=== PATIENT | male | born 1995 | race Caucasian/White ===

== ENCOUNTER 2017-07-10 01:10 | Inpatient (IN) ==
[2017-07-10] MEDS ORDERED: ONDANSETRON 4 MG/2 ML INJECTION IVP ONE ×2 (01:24→02:25)
[2017-07-10] MEDS ORDERED: NS 1,000 ML IV ONE (01:24)
--- NOTE | 2017-07-10 01:29 | Emergency Department Report ---
Overdose HPI - General Stated Complaint: ETOH Time Seen by Provider: 07/10/17 01:24 Source: patient, family Mode of arrival: ambulatory Limitations: no limitations - History of Present Illness HPI Narrative: 22yo man presented to the ER by his friend for dyspnea. Pts 36yo GF recently broke up with him and went back to her ex. Pt was distraught, so he started doing shots at a local bar. Pt had been texting the friend who brought him most of the evening; just before presentation, he texted the friend to come get him. As the friend was helping the pt out of the bar, pt began to c/o dyspnea. They got into the car and pt said, "Call 911". Then he passed out. Pts friend was able to feel a pulse, so he drove the friend to the ER instead. MD complaint: accidental overdose Onset (ago): minute(s) Intent: wanted to escape How Overdose Was Discovered: called family/friend Treatments Prior to Arrival: none - Related Data Home Medications Medication Instructions Recorded Confirmed Ibuprofen 2 cap PO Q4H PRN #0 10/11/16 NO ROUTINE MEDS #0 10/11/16 Allergies Allergy/AdvReac Type Severity Reaction Status Date / Time No Known Allergies Allergy Unverified 10/11/16 18:11 Review of Systems Limitations: ROS unobtainable due to patient's medical condition [facility] Medical History Updates: Facial laceration Physical Exam - Limitations Limitations: other - General General appearance: in no apparent distress, appears intoxicated, lethargic - Normal Exams: Head:: Normocephalic without trauma Eyes:: Pupils are PERRLA w/ EOMI, No scleral icterus, irritation, or foreign bodies noted ENMT:: No facial trauma, nasal exudates, pharyngeal erythema, or exudates are noted Neck:: Full range of motion, without adenopathy Chest/Respirations:: Clear all walker, with good airflow, and symmetry bilaterally Cardiovascular:: Regular rate and rhythm, without murmur or gallop, Pulses 2+ all extremities, capillary refill, <2 seconds all extremities Abdomen:: Bowel sounds positive, soft, non-tender, non-distended, no hepatosplenomegaly, masses or bruits noted Lymphatic:: No lymphadenopathy Musculoskeletal:: No tenderness, or deformity noted Integumentary:: No rashes, hives, or bruising noted - Neurological Exam Neurological exam: Present: reflexes normal. Absent: alert - Expanded Neurological Exam Patient oriented to: Present: person, place. Absent: time - Psychiatric Psychiatric exam: Present: anxious Course Course Narrative: While obtaining initial labs rads, pt would intermittently posture and stop responding. During these episodes, pts SaO2 would drop into the 80s. Before interventions could be made, pt would then recover and SaO2 would spontaneously improve to normal levels. During each episode, pts GCS would be 3; pt fully recovered in between episodes. Episodes only lasted for 30-90 seconds. During the fourth episode, decision was made to intubate pt to protect his airway, since vomiting was a significant concern. Pt tolerated the procedure well. Propofol was ordered for continued sedation following procedure; 5mg more of versed given while awaiting propofol drip to help with sedation. Propofol was titrated upward, but pt continued to fight ventilation, so a bolus of 2mg/kg was given with good sedation. Hospitalist was contacted for admission. - Consultations Consultation #1: Brennon Telemed: Dr. Philippe will admit for EtOH intoxication. Time: 02:42 Vital Signs Temperature 98.0 F 07/10/17 01:15 Pulse Rate 72 07/10/17 01:15 Respiratory Rate 18 07/10/17 01:15 Blood Pressure 128/79 07/10/17 01:15 Pulse Oximetry 100 07/10/17 01:15 Temperature 98.0 F 07/10/17 01:15 Pulse Rate 76 07/10/17 03:01 Respiratory Rate 12 07/10/17 03:01 Blood Pressure 128/79 07/10/17 01:15 Pulse Oximetry 98 07/10/17 03:01 Procedures - Intubation Time out performed: Yes sedative: Versed Mg Given: 15 paralytic: Succinylcholine Mg Given: 100 Laryngoscope: Snyder ET Tube Size: 7.5 ET Tube Uncuffed: No Tube Secured Depth (cm): 25 Tube Secured Location: lips Tube Placement Confirmation: visualized tube passing through cords, equal breath sounds bilaterally, no breath sounds over epigastrium, confirmation by capnometry Patient Tolerated Procedure: well Intubation Complications: none Overdose - Differential Diagnosis Likely: drug overdose (EtOH intoxication), acetaminophen overdose, accidental drug ingestion - Medical Records Attestation: I reviewed the patient's medical records. - Lab Data Attestation: I reviewed the patient's lab results. Result diagrams: 07/10/17 01:44 07/10/17 01:44 Lab Results 07/10/17 07/10/17 07/10/17 Range/Units 01:44 01:44 01:44 WBC 5.9 (4.5-11.0) T/MM3 RBC 4.42 L (4.50-5.90) M/MM3 Hgb 14.1 (13.5-17.5) GM/DL Hct 41.7 (41-53) % MCV 94.3 (80-100) UM3 MCH 31.9 (26-34) UUG MCHC 33.8 (31-37) GM/DL RDW Std Deviation 42.2 (36.9-50.2) FL Plt Count 218 (130-400) T/MM3 MPV 9.9 (9.4-12.4) UM3 Immature Gran % (Auto) 0.2 (0.0-0.5) % Neut % (Auto) 53.7 (33-66) % Lymph % (Auto) 38.3 (23-45) % Phillips % (Auto) 6.6 (0-9.0) % Eos % (Auto) 0.7 (0-4) % Baso % (Auto) 0.5 (0-2) % Neut # 3.2 (1.8-7.7) T/MM3 Lymph # 2.3 (1-4.8) T/MM3 Phillips # 0.4 (0-0.8) T/MM3 Eos # 0.0 (0-0.5) T/MM3 Baso # 0.0 (0-0.2) T/MM3 Abs Immat Gran (auto) 0.01 (0.00-0.03) T/MM3 Turbidity < 20 (0-20) Sodium 151 H (134-144) MEQ/L Potassium 3.9 (3.6-5) MEQ/L Chloride 111 H (98-107) MEQ/L Carbon Dioxide 24 (22-30) MEQ/L Anion Gap 16 H (5-15) MEQ/L BUN 10.0 (9-20) MG/DL Creatinine 0.9 (0.8-1.5) MG/DL GFR Calculation 105 BUN/Creatinine Ratio 11 (6-26) RATIO Glucose 109 (75-110) MG/DL Calculated Osmolality 290 H (261-280) MOSM/KG Calcium 10.0 (8.4-10.2) MG/DL Total Bilirubin 0.70 (0.20-1.30) MG/DL Icterus Index < 2 (0-7) AST 148 H (17-59) U/L ALT 62 (21-72) U/L Alkaline Phosphatase 65 (38-126) U/L Total Protein 7.9 (6.3-8.2) G/DL Albumin 5.0 (3.5-5.0) G/DL Globulin 2.9 (2.4-3.6) G/DL Albumin/Globulin Ratio 1.7 (1.1-2.2) RATIO Specimen Hemolysis < 15 (0-25) Ur Collection Type Urine, clean catch Urine Color Yellow (YELLOW) Urine Clarity Clear Urine pH 6.0 (5.0-8.0) Ur Specific [place] <=1.005 L (1.015-1.025) Urine Protein Negative (NEGATIVE) Urine Glucose (UA) Negative (NEGATIVE) Urine Ketones Negative (NEGATIVE) Urine Occult Blood Negative (NEGATIVE) Urine Nitrate Negative (NEGATIVE) Urine Bilirubin Negative (NEGATIVE) Urine Urobilinogen 0.2 (NORMAL) EU/DL Ur Leukocyte Esterase Negative (NEGATIVE) Urinalysis Comment Microscopic not ind. Salicylates < 1.0 L (2-20) MG/DL Urine Opiates Screen ng/mL Ur Oxycodone Screen ng/mL Urine Methadone Screen ng/mL Ur Propoxyphene Screen ng/mL Acetaminophen < 10 L (10-30) UG/ML Ur Barbiturates Screen ng/mL U Tricyclic Antidepress ng/mL Ur Phencyclidine Scrn ng/mL Ur Amphetamines Screen ng/mL U Methamphetamines Scrn ng/mL U Benzodiazepines Scrn ng/mL Urine Cocaine Screen ng/mL U Cannabinoids Screen ng/mL Alcohol, Quantitative (<10) MG/DL 07/10/17 07/10/17 Range/Units 01:44 01:44 WBC (4.5-11.0) T/MM3 RBC (4.50-5.90) M/MM3 Hgb (13.5-17.5) GM/DL Hct (41-53) % MCV (80-100) UM3 MCH (26-34) UUG MCHC (31-37) GM/DL RDW Std Deviation (36.9-50.2) FL Plt Count (130-400) T/MM3 MPV (9.4-12.4) UM3 Immature Gran % (Auto) (0.0-0.5) % Neut % (Auto) (33-66) % Lymph % (Auto) (23-45) % Phillips % (Auto) (0-9.0) % Eos % (Auto) (0-4) % Baso % (Auto) (0-2) % Neut # (1.8-7.7) T/MM3 Lymph # (1-4.8) T/MM3 Phillips # (0-0.8) T/MM3 Eos # (0-0.5) T/MM3 Baso # (0-0.2) T/MM3 Abs Immat Gran (auto) (0.00-0.03) T/MM3 Turbidity (0-20) Sodium (134-144) MEQ/L Potassium (3.6-5) MEQ/L Chloride (98-107) MEQ/L Carbon Dioxide (22-30) MEQ/L Anion Gap (5-15) MEQ/L BUN (9-20) MG/DL Creatinine (0.8-1.5) MG/DL GFR Calculation BUN/Creatinine Ratio (6-26) RATIO Glucose (75-110) MG/DL Calculated Osmolality (261-280) MOSM/KG Calcium (8.4-10.2) MG/DL Total Bilirubin (0.20-1.30) MG/DL Icterus Index (0-7) AST (17-59) U/L ALT (21-72) U/L Alkaline Phosphatase (38-126) U/L Total Protein (6.3-8.2) G/DL Albumin (3.5-5.0) G/DL Globulin (2.4-3.6) G/DL Albumin/Globulin Ratio (1.1-2.2) RATIO Specimen Hemolysis (0-25) Ur Collection Type Urine Color (YELLOW) Urine Clarity Urine pH (5.0-8.0) Ur Specific Madison (1.015-1.025) Urine Protein (NEGATIVE) Urine Glucose (UA) (NEGATIVE) Urine Ketones (NEGATIVE) Urine Occult Blood (NEGATIVE) Urine Nitrate (NEGATIVE) Urine Bilirubin (NEGATIVE) Urine Urobilinogen (NORMAL) EU/DL Ur Leukocyte Esterase (NEGATIVE) Urinalysis Comment Salicylates (2-20) MG/DL Urine Opiates Screen Negative ng/mL Ur Oxycodone Screen Negative ng/mL Urine Methadone Screen Negative ng/mL Ur Propoxyphene Screen Negative ng/mL Acetaminophen (10-30) UG/ML Ur Barbiturates Screen Negative ng/mL U Tricyclic Antidepress Negative ng/mL Ur Phencyclidine Scrn Negative ng/mL Ur Amphetamines Screen Negative ng/mL U Methamphetamines Scrn Negative ng/mL U Benzodiazepines Scrn Negative ng/mL Urine Cocaine Screen Negative ng/mL U Cannabinoids Screen Negative ng/mL Alcohol, Quantitative 223 (<10) MG/DL - Radiology Data Attestation: I reviewed the patient's radiology results. CXR: No acute CT pathology. ET tube in trachea proximal to enzo. - EKG Data EKG #1 EKG attestation: Yes: I reviewed and interpreted this EKG. EKG shows normal: sinus rhythm, axis, intervals, QRS complexes Rate: normal Interpretation: other (Early repolarization) Critical Care Time Critical Care Time: Yes Total Critical Care Time: 30 Attestation: 30 min of critical care time assigned to this case due to its urgency, complexity of decision making, need for continued patient re-evaluation, or resources devoted to stabilizing the patient. Disposition Clinical Impression: Mental status, decreased Alcoholic intoxication Qualifiers: Complication of substance-induced condition: with unspecified complication Qualified Code(s): F10.929 - Alcohol use, unspecified with intoxication, unspecified Disposition: 02 To [facility] Print Language: Bolivian Condition: Stable Prescriptions: No Action NO ROUTINE MEDS #0 Ibuprofen 2 cap PO Q4H PRN #0 PRN Reason: PAIN Time of Disposition: 02:43 - Seen By: physician
[2017-07-10] MEDS: SALINE FLUSH 10ml SYRINGE IVF PRN ×3 (01:43→03:25)
[2017-07-10] MEDS ORDERED: SUCCINYLCHOLINE 20mg/mL 10mL INJECTION IVP ONE (02:21)
[2017-07-10] MEDS ORDERED: MIDAZOLAM 5mg/5ml INJECTION IVP ONE ×4 (02:21→09:56)
--- OUTSIDE RECORDS SUMMARY | 2017-07-10 02:26 | External Medical Summary | Referral Summary ---
:1995 Author Organization [facility] Address [address] [place] [address] Care Team Providers Name Role Phone Waldo Sanchez Primary Care Physician Encounter [facility] [id number] Date(s): 06/18/16 - 06/18/16 [facility] [address], [place] [address] Discharge Diagnosis: Alcohol intoxication Discharge Disposition: 01-Home or Self Care Attending Physician: Eric Torres MD Admitting Physician: Eric Torres MD Vital Signs Most recent to oldest [Reference Range]: 1 Peripheral Pulse Rate [60-100 bpm] 90 bpm (06/18/16 5:00 AM) Respiratory Rate [14-20 br/min] 22 br/min *HI* (06/18/16 5:00 AM) Blood Pressure [90-140/60-90 mmHg] 129/86 mmHg (06/18/16 5:00 AM) SpO2 99 % (06/18/16 5:00 AM) Problem List No Known Problems Allergies, Adverse Reactions, Alerts No data available for this section Medications No data available for this section Results No data available for this section Immunizations No data available for this section Procedures No data available for this section Social History Unable to Obtain Assessment and Plan No data available for this section
[2017-07-10] MEDS: PROPOFOL 1,000 MG/100 ML VIAL IV PRN ×2 (02:39→09:34)
[2017-07-10] MEDS ORDERED: PROPOFOL 200 MG/20 ML INJECTION IVP ONE (03:00)
[2017-07-10] MEDS ORDERED: NS 1,000 ML IV SCH (03:30)
[2017-07-10] MEDS ORDERED: PROMETHAZINE 25 MG INJECTION IVP PRN (04:39)
[2017-07-10] MEDS ORDERED: MORPHINE SULFATE 2 MG SYRINGE IVP PRN (04:39)
--- NOTE | 2017-07-10 04:52 | History & Physical Report ---
<Waylon Philippe P - Last Filed: 07/10/17 04:48> History of Present Illness Date: 07/10/17 Chief complaint: none now, weakness and dyspnea before intubated HPI: Please note that the patient was seen via telemedicine with nursing assistance on 07/10/2017. Mr. Bernabe is a 22yo man with h/o alcohol abuse who cannot provide history as he is intubated. His friend is at the bedside and had brought him into the ED after knowing the patient was drunk at a local bar after doing many shots 07/09 after breaking up with a 36yo girlfriend. Noted alcohol abuse history with no other drugs. When he was getting out of the bar to the car he felt more weak and a little short of breath. After a couple of hours in the ED GCS was less than 8 and the patient could not protect his airway so intubation was completed. Review of Systems ROS unobtainable: due to endotracheal tube [facility] Medical History Updates: Facial laceration - Social History Smoking status: Current some day smoker Alcohol intake: current Medications Home Medications Medication Instructions Recorded Confirmed Type No known Home medications [No home 07/10/17 07/10/17 History meds] Allergies Allergy/AdvReac Type Severity Reaction Status Date / Time No Known Allergies Allergy Verified 07/10/17 04:57 Exam Vital Signs: Temperature 98.0 F 07/10/17 01:15 Pulse Rate 76 07/10/17 03:01 Respiratory Rate 12 07/10/17 03:01 Blood Pressure 128/79 07/10/17 01:15 Pulse Oximetry 98 07/10/17 03:01 Telemetry Rhythm: Sinus Rhythm - Constitutional Present: no acute distress Comments: propofol on the ventilator - Routine HEENT Exam Eye: Present: PERRL - Routine Respiratory Exam Present: CTA bilaterally. Absent: accessory muscle use, respiratory distress - Routine Cardiovascular Exam Present: RRR, S1, S2. Absent: murmur - Routine Abdominal Exam Present: soft, normoactive bowel sounds - Routine Neurological Exam sedated on the ventilator with no lateralizing signs Results - Labs CBC & Chem 7: 07/10/17 01:44 07/10/17 01:44 Assessment and Plan (1) Encephalopathy acute Current visit: Yes Status: Acute 07/10/17 04:54 acute toxic and metabolic encephalopathy with alcohol intoxication and hypernatremia likely from poor free water intake and excess salt intake. IVF and supportive care on the ventilator with propofol and ativan prn for sedation. Full inpatient admission to the ICU. Polysubstance abuse with alcohol induced elevated ASA and tobacco abuse--needs to stop. Resuscitation Status: Full Code Hospital Course Summary Disclaimer: The visit summary below is not to be considered part of the above Progress Note. <Vikash Metz - Last Filed: 07/10/17 10:54> History of Present Illness Date: 07/10/17 Exam Vital Signs: Temperature 98.0 F 07/10/17 01:15 Pulse Rate 58 L 07/10/17 08:59 Respiratory Rate 10 07/10/17 08:59 Blood Pressure 114/72 07/10/17 07:00 Pulse Oximetry 97 07/10/17 08:59 Height/Weight/BMI: Height 1.7 m Weight 66 kg Body Mass Index 22.8 Results - Labs CBC & Chem 7: 07/10/17 01:44 07/10/17 07:16 - ABG Interpretation ABG results: 07/10/17 07:16 VBG pH 7.510 H VBG pCO2 33 L VBG pO2 41 VBG HCO3 26 VBG Total CO2 27.3 VBG O2 Saturation 82.0 VBG Base Excess 3.6 H Assessment and Plan (1) Encephalopathy acute Current visit: Yes Status: Acute DVT Prophylaxis: SCD's Assessment and Plan: Have independently interviewed and examined pt. Chart reviewed. Case discussed with patient's friends and CCU nurse. Reviewed above note and concur. CC: Dyspne, passed out. HPI: 22 y/o male presents to [facility] ER via private vehicle secondary to dyspnea and passing out. Apparently his GF broke up with him. Was out at a bar drinking ; doing shots. Friend in room at time of my interview reports he will drink occasional, but not much-2 beers is typically enough for him. Texted a friend to come get him from the bar. As leaving, reported dyspnea and felt needed EMS- then passed out. Taken to [facility]. Very somnolent. Respiratory status depressed. Intubated in ED for airway protection and to assist respiratory status. Admitted to CCU for supportive care. Has bend on Propofol for sedation since in ED. PMHx: Unobtainable. Allergies: NKDA MEDS: none reported SHx: Occasionally will use Etoh-beer. FHx: unobtainable ROS: unobtainable due to ET tube. EXAM GEN: WDWN male, sedated HEENT: NC/AT PERRLA EOMI ET and NG tube present NECK: Midline, supple Lungs: Decreased, Upper airway noises from ET tube CV: regular AB: soft nt/nd EXT: no edema, SCD in place Psych: sedated Neuro: Sedated Skin: warm and dry Assessment Acute encephalopathy - ETOH induced Respiratory suppression secondary to ETOH - intubated for airway protection. Hypernatremia (POA) - likely ETOH induced. Elevated AST - suspect ETOH Hypokalemia (Not POA) Plan Will stop Propofol and preform weaning trial - hope to be able to extubate today. Change IVF to 1/2 NS at 125 to help correct sodium. Replace potassium - IV boluses. Monitor respiratory status. IS post extubation. Regular diet when awake and alert. SCD for DVT prevention. Monitor lab. Hospital Course Summary Disclaimer: The visit summary below is not to be considered part of the above Progress Note. Hospital Course: 07/10/17 Admission to CCU Acute toxic and metabolic encephalopathy with alcohol intoxication and hypernatremia likely from poor free water intake and excess salt intake. IVF and supportive care on the ventilator with propofol and ativan prn for sedation. Full inpatient admission to the ICU. Morning Reassessment Acute encephalopathy - ETOH induced Respiratory suppression secondary to ETOH - intubated for airway protection. Hypernatremia (POA) - likely ETOH induced. Elevated AST - suspect ETOH Hypokalemia (Not POA) Plan Will stop Propofol and preform weaning trial - hope to be able to extubate today. Change IVF to 1/2 NS at 125 to help correct sodium. Replace potassium - IV boluses. Monitor respiratory status. IS post extubation. Regular diet when awake and alert. SCD for DVT prevention. Monitor lab. Pt extubated at 1045.
[2017-07-10 04:53] VITALS: BMI 22.8
[2017-07-10] MEDS: LR 1,000 ML IV SCH ×2 (05:04→09:35)
[2017-07-10] MEDS: ENOXAPARIN 40 MG/0.4 ML INJECTION SQ SCH ×2 (05:07→09:11)
[2017-07-10] MEDS ORDERED: LR 500 ML IV SCH (06:15)
[2017-07-10] MEDS ORDERED: 1/2 NS 1,000 ML IV SCH (10:15)
[2017-07-10] MEDS: LIDOCAINE 1% 2ml INJ 10 MG, POTASSIUM CHLORIDE INJ 10 MEQ in NS 100 ML IV SCH ×4 (12:07→16:22)
[2017-07-10 16:59] VITALS: BP 122/72; TEMP 98.1
--- NOTE | 2017-07-10 18:31 | Discharge Summary ---
Discharge Information Date of admission: 07/10/17 04:10 Anticipated date of discharge: 07/10/17 Attending Physician: Dr Metz - Discharge Diagnosis (1) Encephalopathy acute Status: Acute Discharge Diagnosis: Discharge diagnosis Acute encephalopathy - ETOH induced Associated conditions and complications Respiratory suppression secondary to ETOH - intubated for airway protection. Hypernatremia (POA) - likely ETOH induced. Elevated AST - suspect ETOH Hypokalemia (Not POA) - Procedures Procedures: Intubation with mechanical ventilation for less than 12 hours - Laboratory Labs: Admit Lab 07/10/17 01:44 WBC 5.9 Hgb 14.1 Hct 41.7 MCV 94.3 Plt Count 218 Admit Lab 07/10/17 01:44 Sodium 151 H Potassium 3.9 Chloride 111 H Carbon Dioxide 24 Anion Gap 16 H BUN 10.0 Creatinine 0.9 GFR Calculation 105 Glucose 109 Calculated Osmolality 290 H Total Bilirubin 0.70 AST 148 H ALT 62 Alkaline Phosphatase 65 07/10/17 07:16 History of Present Illness HPI: Mr. Bernabe is a 22yo man with h/o alcohol abuse who cannot provide history as he is intubated. His friend is at the bedside and had brought him into the ED after knowing the patient was drunk at a local bar after doing many shots 07/09 after breaking up with a 36yo girlfriend. Noted alcohol abuse history with no other drugs. When he was getting out of the bar to the car he felt more weak and a little short of breath. After a couple of hours in the ED GCS was less than 8 and the patient could not protect his airway so intubation was completed. For complete details of the H&P refer to that document Objective Vital signs: Temperature 98.1 F 07/10/17 16:00 Pulse Rate 63 07/10/17 17:00 Respiratory Rate 16 07/10/17 17:00 Blood Pressure 122/72 07/10/17 16:00 Pulse Oximetry 97 07/10/17 17:00 Height/Weight/BMI: Height 1.7 m Weight 66 kg Body Mass Index 22.8 Hospital Course This is a general summary of the patient's hospital course. For more details refer to the complete medical record. Hospital course: 07/10/17 Admission to CCU Acute toxic and metabolic encephalopathy with alcohol intoxication and hypernatremia likely from poor free water intake and excess salt intake. IVF and supportive care on the ventilator with propofol and ativan prn for sedation. Full inpatient admission to the ICU. Morning Reassessment Acute encephalopathy - ETOH induced Respiratory suppression secondary to ETOH - intubated for airway protection. Hypernatremia (POA) - likely ETOH induced. Elevated AST - suspect ETOH Hypokalemia (Not POA) Plan Will stop Propofol and preform weaning trial - hope to be able to extubate today. Change IVF to 1/2 NS at 125 to help correct sodium. Replace potassium - IV boluses. Monitor respiratory status. IS post extubation. Regular diet when awake and alert. SCD for DVT prevention. Monitor lab. Pt extubated at 1045. 1800 follow up visit. Did well during the afternoon and evening. Breathing well on RA-not SOA or congested. IS initiated. Eating well. No problems urinating. Passing stool. Steady on feet. Lungs are clear and heart is regular. Mentation normal; converses well. Able to be discharged as medically improved. See orders for details. Time spent with patient: discharge greater than 30 minutes DVT Prophylaxis: SCD's Discharge Plan - Med Rec/Dispo Prescriptions: No Action No known Home medications [No home meds] 0 #0 misc Discharge Instructions/Outpatient Orders: Final Provider Discharge Instructions Location: Determined By Patient - Disposition 01 Discharged Home, Self-Care - Attestation Attestation Narrative: 07/10/17 18:37 I have independently interviewed and examined pt prior to discharge. Medically stable for discharge to home.
[2017-07-10 19:09] VITALS: PULSE 62; RESP 15; O2SAT 99
--- NOTE | 2017-07-11 10:42 | XRay Report ---
Indication: EtOH intoxication; SOB PROCEDURE: XR chest 1V: Encounter: Initial Comparison: None Findings: Endotracheal tube in place with the tip projecting 1.8 cm above the enzo. Lungs are grossly clear. No pleural effusion or pneumothorax. Heart size and mediastinal contours are within normal limits. Impression: Endotracheal tube as above. No acute cardiopulmonary disease. .
== END 2017-07-10 19:10 | disposition home or self-care (01) | DRG 92 ==
LOC: ED 01:10 → CCU 04:10
PROVIDERS: ADMIT Hospitalist; ATTEND Internal Medicine